=== PATIENT | male | born 1965 | race Caucasian/White ===

== ENCOUNTER 2017-11-11 21:32 | Observation (INO) | payer OTHER ==
[~2017-11-11] VITALS: Ht 185.4 cm; Wt 107.3 kg
--- NOTE | 2017-11-11 21:51 | ED CARDIAC/CP/PALPITATIONS ---
History of Present Illness General Chief Complaint: Chest Pain Stated Complaint: CHEST/NECK AND UPPER BODY PAIN, X 2 DAYS Source: patient Exam Limitations: no limitations Vital Signs & Intake/Output Vital Signs & Intake/Output Vital Signs Date Time Temp Pulse Resp B/P B/P Pulse O2 O2 Flow FiO2 Mean Ox Delivery Rate 11/11 2316 Room Air 11/11 2226 98.3 80 16 142/78 98 Room Air Room Air Triage Nurses Notes Reviewed? yes HPI: 52 yo gentleman h/o of hyperlipidemia presents with substernal chest pressure, fluctuating, that began yesterday at 3pm. He notes radiation to his left jaw, a mild headache. At it's worse, just prior to arrival, it was 7/10. Presently, his discomfort is 2/10. He describes the discomfort as a "pressure" that moves all over. He notes no syncopal symptoms, palpitations, dyspnea. He is otherwise well. Past History Travel History Traveled to [place] past 21 day No Medical History Any Pertinent Medical History? see below for history Cardiovascular: hyperlipidemia Surgical History Surgical History: none Family History Hx Contributory? No Review of Systems Review of Systems Constitutional: Reports: no symptoms. EENTM: Reports: no symptoms. Respiratory: Reports: no symptoms. Cardiovascular: Reports: no symptoms. GI: Reports: no symptoms. Genitourinary: Reports: no symptoms. Musculoskeletal: Reports: no symptoms. Skin: Reports: no symptoms. Neurological/Psychological: Reports: no symptoms. Hematologic/Endocrine: Reports: no symptoms. Immunologic/Allergic: Reports: no symptoms. All Other Systems: Reviewed and Negative Physical Exam Physical Exam General Appearance: well developed/nourished, no apparent distress, alert, comfortable Head: atraumatic, normal appearance Eyes: Bilateral: normal appearance. Ears, Nose, Throat: normal pharynx, normal ENT inspection Neck: normal inspection, supple, full range of motion Respiratory: normal breath sounds, chest non-tender, no respiratory distress, quiet respiration, lungs clear Cardiovascular: regular rate/rhythm Gastrointestinal: normal bowel sounds, soft, non-tender Back: normal inspection, normal range of motion Extremities: normal inspection, normal capillary refill, normal range of motion Neurologic/Psych: no motor/sensory deficits, awake, alert, oriented x 3 Skin: intact, normal color, warm/dry Core Measures ACS in differential dx? No CVA/TIA Diagnosis No Sepsis Present: No Sepsis Focused Exam Completed? No Progress Differential Diagnosis: AMI, unstable angina Plan of Care: Orders Procedure Date/time Status Nothing by Mouth 11/12 B Active Saline Lock 11/13 7 Active Misc Message 11/13 7 Active ED Holding Orders 11/13 7 Active Vital Signs 11/13 7 Active Code Status 11/[address] in observation 11/12 6 Active TROPONIN LEVEL 11/11 2144 Complete LIPASE 11/11 2144 Complete HEPATIC FUNCTION PANEL 11/11 2144 Complete D-DIMER 11/11 2144 Complete CBC WITHOUT DIFFERENTIAL 11/11 2144 Complete BASIC METABOLIC PANEL 11/11 2144 Complete AMYLASE 11/11 2144 Complete EKG 11/11 2133 Active Current Medications Sig/Flaquito Start time Last Medication Dose Stop Time Status Admin Ketorolac 30 MG ONCE ONE 11/11 2344 UNVr Tromethamine 11/11 2345 (Toradol) Laboratory Tests 11/11/172156: Anion Gap 8, Estimated GFR > 60, BUN/Creatinine Ratio 20.0, Glucose 174 H, Calcium 9.3, Total Bilirubin 0.7, Direct Bilirubin 0.2, AST 24, ALT 34, Alkaline Phosphatase 61, Troponin I < 0.01, Total Protein 6.5, Albumin 3.9, Amylase 75, Lipase 128, D-Dimer High Sensitivty < 200, CBC w Diff NO MAN DIFF REQ, RBC 4.57 L, MCV 88.2, MCH 30.0, MCHC 34.0, RDW 13.4, MPV 7.7, Gran % 74.8, Lymphocytes % 14.9 L, Monocytes % 6.3, Eosinophils % 3.7, Basophils % 0.3, Absolute Granulocytes 6.3, Absolute Lymphocytes 1.3, Absolute Monocytes 0.5, Absolute Eosinophils 0.3, Absolute Basophils 0 Diagnostic Imaging: Viewed by Me: Radiology Read. Discussed w/RAD: Radiology Read. CXR Impression: PATIENT: NANCY DESIR PRESENT AGE: 52 PATIENT ACCOUNT NO: [id number] : 65 LOCATION: [facility] ORDERING PHYSICIAN: Sandip Rodriguez MD SERVICE DATE: 11/11/17-2144 EXAM TYPE: RAD - XRY- PORTABLE CHEST XRAY EXAMINATION: XR PORTABLE CHEST CLINICAL INFORMATION: Chest pain COMPARISON: None TECHNIQUE: Portable frontal view of the chest was obtained. FINDINGS: Cardiac silhouette is normal in size. Lungs are adequately aerated. No lobar consolidation. No gross pleural effusion or pneumothorax. IMPRESSION: No acute cardiopulmonary pathology. DICTATED BY: Jamie Abarca MD DATE/TIME DICTATED:11/11/172301 CLIPMAN:NAYE DATE/TIME TRANSCRIBED:11/11/172301 CONFIDENTIAL, DO NOT COPY WITHOUT APPROPRIATE AUTHORIZATION. <Electronically signed in Other Vendor System> SIGNED BY: Jamie Abarca MD 11/11/172305 Initial ED EKG: low voltage III, F, left ant fasicular block, nsr. no acute changes Departure Departure Disposition: STILL A PATIENT Condition: Stable Clinical Impression Primary Impression: Chest pain Departure Forms: Customer Survey General Discharge Information Observation Note Spoke With: Kwabena Armendariz MD Patient In: Non-ED OBS Care Area Rationale for Observation: My rational for observation is as follows . pt with chest pain, non specific ekg, uncertain etiology.... merits serial trops /ekg/monitoring, cards to eval in AM. call placed to cardiology. Critical Care Note Critical Care Note Critical Care Time: non-applicable
[2017-11-11 22:09] LABS: ABSOLUTE BASOPHIL COUNT 0 /CUMM (0.0-0.2); ABSOLUTE EOSINOPHIL COUNT 0.3 /CUMM (0.0-0.7); ABSOLUTE GRANULOCYTE CT 6.3 /CUMM (1.4-6.5); ABSOLUTE LYMPH COUNT 1.3 /CUMM (1.2-3.4); ABSOLUTE MONOCYTE COUNT 0.5 /CUMM (0.10-0.60); BASOPHIL % 0.3 % (0.0-2.0); EOSINOPHIL % 3.7 % (0-5); GRANULOCYTE % 74.8 % (42.2-75.2); HEMATOCRIT 40.4 % (42-52); MEAN CORPUSCULAR VOLUME 88.2 FL (80.0-94.0); MEAN PLATELET VOLUME 7.7 FL (7.4-10.4); PLATELET COUNT 249 /CUMM (130-400); RBC DISTRIBUTION WIDTH 13.4 % (11.5-14.5); RED BLOOD CELL CT 4.57 /CUMM (4.70-6.10); WHITE BLOOD CELL COUNT 8.4 /CUMM (4.8-10.8)
--- NOTE | 2017-11-11 23:06 | RADIOLOGY REPORT ---
EXAMINATION: XR PORTABLE CHEST CLINICAL INFORMATION: Chest pain COMPARISON: None TECHNIQUE: Portable frontal view of the chest was obtained. FINDINGS: Cardiac silhouette is normal in size. Lungs are adequately aerated. No lobar consolidation. No gross pleural effusion or pneumothorax. IMPRESSION: No acute cardiopulmonary pathology.
--- NOTE | 2017-11-12 01:43 | History & Physical ---
Kevin STEEL,Jonna 11/12/17 0121: General Information and HPI MD Statement: I have seen and personally examined NANCY DESIR and documented this H&P. The patient is a 52 year old M who presented with a patient stated chief complaint of [chest pain]. Source of Information: patient Exam Limitations: no limitations History of Present Illness: Patient is a 52-year-old male presented with chief complaints of chest pain started since 3 PM yesterday. PMH-sarcoidosis last 15-year regularly following by Dr. Frantz Bob at [facility] , type 2 diabetes, history of sleep apnea not using CPAP following Dr. Trey Haskins. History of present illness-he is a known case of sarcoidosis and had multiple episodes of chest pain since last 15 years. he never took an opinion from any manager ecommerce. Yesterday at work around 3 PM he started having intermittent chest discomfort which is described as a lumps in the chest. He was having associated burping movements. Initially the chest pain was in the range of 4-5 and at the time of presentation initially it was between 2-7. He did try couple of tums without any benefit. He was worried that he may have some cardiac problem so that is why he was here for further evaluation and management. He is pretty active at the baseline, goes to the same around 4 times in a week, but have sitting job. He denies for using any [id number]-fvp-[id number] medication but sometimes uses ibuprofen as needed. He was evaluated by his primary care provider for sarcoidosis. He said that he did echo, stress test and Holter monitoring recently which showed only evidence of APCs and VPCs. He was recently diagnosed as having diabetes since last 2 years and was working on his diet. He lost from 218 LB to 235 albumin 1 year. But regained around 12 LBM last couple of weeks. He said that he was eating junky foods. His HbA1c before weight loss was 12 and with a diet decrease down to 7.3. Recently he has a lot of stress because he is undergoing divorce. He was also having history of chronic dry cough and recently which got worse. His primary care provider has been prescribed him rescue inhaler. 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 He is recently under a lot of stress due to the divorce. He has 3 children. Family history- Mother-history of breast cancer, hypertension, diabetes Father-history of diabetes, lymphoma, melanoma Allergies-penicillin causes rash Surgeries-tonsillitis Allergies/Medications Allergies: Coded Allergies: Penicillins (RASH 11/12/17) Uncoded Allergies: SEEDED FRUIT (HIVES 11/12/17) Past History Travel History Traveled to [place] past 21 day No Medical History Neurological: NONE EENT: NONE Cardiovascular: hyperlipidemia Respiratory: NONE Gastrointestinal: NONE Hepatic: NONE Renal: NONE Musculoskeletal: NONE Psychiatric: NONE Endocrine: NONE Blood Disorders: NONE Cancer(s): NONE ENROLLMENT NURSE/Reproductive: NONE Surgical History Surgical History: none Review of Systems Review of Systems Constitutional: Reports: no symptoms. Cardiovascular: Reports: chest pain. Exam & Diagnostic Data Last 24 Hrs of Vital Signs/I&O Vital Signs Date Time Temp Pulse Resp B/P B/P Pulse O2 O2 Flow FiO2 Mean Ox Delivery Rate 11/12 0117 55 20 111/56 99 Room Air 11/11 2316 Room Air 11/11 2226 98.3 80 16 142/78 98 Room Air Room Air Physical Exam General Appearance Alert, Oriented X3, Cooperative, No Acute Distress HEENT Atraumatic, PERRLA, EOMI Neck ? LYMPHADENOPATHY IN NECK Cardiovascular Normal S1, Normal S2 Lungs Clear to Auscultation, Normal Air Movement Abdomen Soft, No Tenderness Neurological Normal Speech, Strength at 5/5 X4 Ext, Normal Tone Extremities No Clubbing, No Cyanosis, No Edema Vascular Normal Pulses, Pulses Symmetrical Assessment/Plan Assessment: Patient is a 52-year-old male, morbidly obese presented with chief complaints of gradually progressive chest pain since yesterday 3 PM. Vital signs at the time of admission-temperature 98.3, pulse 80, respiratory 16, blood pressure 142/78, SPO2 98% on room air. Blood workup-hemoglobin 13.7, hematocrit 40.4, platelet count 249, serum sodium 136, potassium 3.5, chloride 100, carbon DEXA 27, anion gap 8, BUN 16, creatinine 0.8, GFR 60, glucose 174, calcium 9.3, total bilirubin 0.7, direct bilirubin 0.2, AST 24, ALT 34, alkaline phosphatase 61, troponin I less than 0.01, total protein 6.5, d-dimer less than 200 Chest x-ray-no any acute cardiopulmonary abnormality Problem list- Chest pain ruling out acute coronary syndrome; possibly secondary to the alcohol use and the stress or may be GERD Type 2 diabetes Sleep apnea not using CPAP Substance use disorder Assessment and plan- We will admit the patient to telemetry floor We will do serial troponins and EKGs 4am We will place a cardiology consult Follow echocardiogram Start on the capsule omeprazole 40 mg daily Tablet aspirin [address] of the chest/neck Fingerstick 3 times daily/at bedtime NovoLog according to the sliding scale Follow HbA1c, CRP, ESR We will consult the patient regarding sleep apnea and use of CPAP CODE STATUS-full code Diet-heart healthy diet DVT prophylaxis-ALP S/heparin As Ranked By This Provider Problem List: 1. Chest pain 2. Sarcoidosis Core Measures/Misc (11/03) Acute Coronary Syndrome ACS Diagnosis: No Congestive Heart Failure Congestive Heart Failure Diagnosis No Cerebrovascular Accident CVA/TIA Diagnosis: No VTE (View Protocol) VTE Risk Factors Age>40 No Mechanical VTE Prophylaxis d/t N/A MechProphylax Ordered No VTE Pharm Prophylaxis d/t NA PharmProphylax ordered Sepsis (View protocol) Sepsis Present: No If YES complete Sepsis Event Note If YES complete Sepsis Event Note Kwabena Armendariz MD 11/12/17 0410: Core Measures/Misc (11/03) Sepsis (View protocol) If YES complete Sepsis Event Note If YES complete Sepsis Event Note Attending MD Review Statement Attending Statement Attending MD Statement: examined this patient, discuss w/resident/PA/REEL OPERATOR, agreed w/resident/PA/REEL OPERATOR Attending Assessment/Plan: Patient is seen and examined independently by me. Care plan discussed with site medical director and/or resident. I agree with the physical exam findings and plan of care as outlined above with the following changes and additions. 52 yo M with history of sarcoidosis, DM, HLD, sleep apnea but not using CPAP, presents with chest pain. Patient has intermittent chest pressure since 3 pm on 11/10 with radiation to neck. It also has a "lumpy" character to the discomfort. It is associated with mild SOB and diaphoresis. He is dealing with divorce recently. On exam, heart: regular, S1S2. Lungs: clear bilaterally. In the ED, troponin <0.01. D-dimer <200. CXR shows no acute infiltrate or edema. CT neck shows no soft tissue mass. CT chest shows adenopathy c/w sarcoidosis. EKG shows NSR at 70 with inverted T in lead III only and no other significant ST -T changes. Patient is placed on observation to [facility] for chest pain. Cardiac monitoring. Check serial troponin and EKG. Start ASA and omeprazole. Cardiology consult. Signed: Kwabena Armendariz MD FACP
--- NOTE | 2017-11-12 03:09 | CT SCAN REPORT ---
EXAMINATION: CT NECK WITHOUT CONTRAST CLINICAL INFORMATION: History of sarcoidosis. Feeling of lump in neck. COMPARISON: None TECHNIQUE: Multidetector CT imaging of the soft tissue neck and chest was performed without the use of intravenous contrast. DLP: 508 mGy-cm FINDINGS: CT neck: Overall evaluation is made limited given the lack of intravenous contrast. The aerodigestive tract is patent. No evidence of drainable fluid collection or pathologic adenopathy. Multiple mildly prominent bilateral cervical and periparotid lymph nodes are seen, though likely reactive in etiology. The bilateral parotid and submandibular glands are within normal limits for size. There is a heterogeneously enlarged thyroid gland with dystrophic calcification on the right. The visualized intracranial compartment is unremarkable. There complete opacification of the left ethmoid sinus with aerosolized secretions and mucosal thickening in the left maxillary sinus. Opacification of scattered right ethmoid air cells. Left maxillary mucosal retention cyst noted. No suspicious lytic or blastic osseous lesions. CT chest: The heart is within normal limits for size. No significant pericardial effusion is identified. Multiple bulky mediastinal and hilar lymph nodes are seen, several which are calcified, in keeping with the history of sarcoidosis. An index subcarinal node measures up to 2.7 cm in short axis while a conglomerate right paratracheal node measures 2.8 cm in short axis. Evaluation of the lungs demonstrates minimal bibasilar atelectatic changes. Superimposed subpleural nodule is seen in the lateral aspect of the right lower lobe measuring 4 mm (series 5, image 310). A few perifissural nodules are seen along the right major fissure the largest measuring 6 mm (series 5, image 270) and the other more inferiorly measuring up to 4 mm (series 5, image 340). Given their location, these nodules are favored to reflect intrapulmonary lymph nodes. Also noted is a 4 mm bronchovascular nodule in the right lower lobe (series 5, image 270). No evidence of pneumothorax or pleural effusion. No evidence of axillary adenopathy. No suspicious lytic or blastic osseous lesions identified. IMPRESSION: CT neck: No evidence of soft tissue mass, fluid collection, or pathologic adenopathy in the neck allowing for noncontrast technique. Aerosolized secretions in the left frontal sinus with near complete opacification of the left ethmoid sinus, which may reflect acute sinusitis in the appropriate clinical setting. CT CHEST: Bulky, partially calcified mediastinal and hilar adenopathy, in keeping with history of sarcoidosis. Four subcentimeter pulmonary nodules particularly along the right lower lobe, three of which are subpleural or perifissural in location, therefore favored to be benign in etiology. An addition 4 mm bronchovascular nodule in the right lower lobe is nonspecific. If the patient is considered to be high risk for lung malignancy, consider follow-up with repeat CT in 12 months to ensure stability and/or resolution. I personally reviewed the images and, if necessary, I edited the report. I agree with the report as now presented.
[2017-11-12 06:30] VITALS: BP 120/66
--- NOTE | 2017-11-12 10:51 | PN- Housestaff ---
Subjective Follow-up For: atypical chest pain observation status Complaints: 'sensation of lump in throat' Tele-Events Since Last Visit: sinus rhythm rate 84-92 Subjective: Patient reports continued sensation 'something in my throat'. He states his chest pain has resolved. No other complaints or events overnight. Review of Systems Constitutional: Reports: no symptoms. EENTM: Reports: throat pain. Cardiovascular: Reports: no symptoms. Respiratory: Reports: no symptoms. Gastrointestinal: Reports: no symptoms. Genitourinary: Reports: no symptoms. Musculoskeletal: Reports: no symptoms. Skin: Reports: no symptoms. Objective Last 24 Hrs of Vital Signs/I&O Vital Signs Date Time Temp Pulse Resp B/P B/P Pulse O2 O2 Flow FiO2 Mean Ox Delivery Rate 11/12 1004 Room Air Room Air 11/12 0630 97.7 56 18 120/66 94 Room Air 11/12 0117 55 20 111/56 99 Room Air 11/11 2316 Room Air 11/11 2226 98.3 80 16 142/78 98 Room Air Room Air Intake & Output 11/12 1600 11/12 0800 11/12 0000 Intake Total 100 Output Total Balance 100 Intake, IV 100 Patient 237 lb Weight Physical Exam General Appearance: Alert, Oriented X3, Cooperative, No Acute Distress Skin: No Rashes Skin Temp/Moisture Exam: Warm/Dry HEENT: Atraumatic, PERRLA Neck: Supple, No JVD Cardiovascular: Regular Rate, Normal S1, Normal S2, No Murmurs Lungs: Clear to Auscultation, Normal Air Movement Abdomen: Normal Bowel Sounds, Soft, No Tenderness Extremities: No Cyanosis, No Edema Assessment/Plan Assessment: 52 year old male with PMH sarcoidosis (close monitoring by Tanker Truck Driver Dr. Bob), DM2, sleep apnea (not on CPAP) presented with two day history of chest pain and sensation of lump in his throat. He states he had these sx off and on for 15 years, but never lasting longer than 4 hours. He was brought into hospital for observation and cardiology consult inpatient. Problem List: 1. Chest pain 2. H/O sarcoidosis 3. H/O DM2 #chest pain -negative work up for ACS including trop, ekg, cxr, ct chest, ct neck -Cardiology consult: Dr. Muro saw and states patient can be discharge with outpatient referral for stress test. #chronic medical problems -medications continued DVT prophylaxis: lovenox/ambulation Code status: full code Discharge: today Problem List: 1. Chest pain 2. Sarcoidosis Pain Ratin Pain Location: none Pain Goal: Remain pain free Pain Plan: n/a Tomorrow's Labs & Rationales: no
--- NOTE | 2017-11-12 10:52 | PN- Att Addend ---
Attending Addendum Attending Brief Note Patient seen and examined. This is a 52-year-old male with a past medical history of sarcoidosis who follows with the PCP and a public relations account supervisor with the primary group. He came in with atypical chest pain and overnight his ruled out with enzymes. No EKG changes, stayed normotensive, chest pain-free and imaging CT neck and CT chest negative. I discussed with the extra gang supervisor Emerson Robertson MD. He does not need an inpatient echo and does not need to leave on baby aspirin. He is stable to leave and he will follow-up with Dr. Robertson's office within the week to schedule an outpatient stress test.
--- NOTE | 2017-11-12 11:03 | Patient Discharge Instructions ---
Discharge Instructions General Discharge Information You were seen/treated for: chest pain Watch for these problems: return of chest pain, shortness of breath, fevers Special Instructions: Please let your [facility]n Integrated know your were seen in the ED. Please follow up with Dr. Robertson (Margarine Maker) as an outpatient within one week for stress test. Please contact him this week. You may contact medical records at [phone] for copies of your work up while in the hospital. Please return immediately if symptoms return or you experience shortness of breath, chest pain. Diet Continue normal diet: No Recommended Diet: Diabetic Acute Coronary Syndrome Inclusion Criteria At DC or during hospital stay patient has or had the following: ACS DIAGNOSIS No Discharge Core Measures Meds if any: Prescribed or Continued at Discharge Meds if any: NOT Prescribed or Continued at Discharge Congestive Heart Failure Inclusion Criteria At DC or during hospital stay patient has or had the following: CHF DIAGNOSIS No Discharge Core Measures Meds if any: Prescribed or Continued at Discharge Meds if any: NOT Prescribed or Continued at Discharge Cerebrovascular accident Inclusion Criteria At DC or during hospital stay patient has or had the following: CVA/TIA Diagnosis No Discharge Core Measures Meds if any: Prescribed or Continued at Discharge Meds if any: NOT Prescribed or Continued at Discharge Venous thromboembolism Inclusion Criteria VTE Diagnosis No VTE Type NONE VTE Confirmed by (Test) NONE Discharge Core Measures - Per Current guidelines, there needs to be overlap - treatment for the first 5 days of Warfarin therapy. - If discharged on Warfarin prior to 5 days of - overlap therapy, the patient will need to be - assessed for post discharge needs including - *Post discharge parental anticoagulation - *Warfarin and/or parental anticoagulation education - *Follow up date to check INR post discharge At least 5 days overlap therapy as Inpatient No Meds if any: Prescribed or Continued at Discharge Note: Overlap Therapy is Warfarin and Anticoagulant Meds if any: NOT Prescribed or Continued at Discharge
--- NOTE | 2017-11-12 12:18 | Cons- Cardiology ---
General Information and HPI Consulting Request Date of Consult: 11/12/17 Requested By: Jessie Tamayo MD Reason for Consult: Chest pain Source of Information: patient, old records History of Present Illness: This is a pleasant 52-year-old male with a past medical history of sarcoidosis, sleep apnea, and diabetes who presents to [facility] with a chief complaint of nonexertional chest discomfort without any obvious exacerbating or alleviating factors; he reports he has had intermittent episodes for many years which are not increasing in intensity or frequency; he had a noninvasive cardiac workup in 2017 that showed no significant pathology (echocardiogram, Holter monitor, and exercise stress test); he denies diaphoresis or worsening shortness of breath. Denies orthopnea or paroxysmal nocturnal dyspnea. Denies syncope, headache, slurring of speech, or focal weakness. He has good exertional tolerance with no exertional symptoms. He does report recent emotional stress. Allergies/Medications Allergies: Coded Allergies: Penicillins (RASH 11/12/17) Uncoded Allergies: SEEDED FRUIT (HIVES 11/12/17) Home Med List: No Known Home Medications Current Medications: Current Medications Sig/Flaquito Start time Last Medication Dose Route Stop Time Status Admin Acetaminophen 500 MG Q6P PRN 11/12 0145 AC PO Acetaminophen 0 .STK-MED ONE 11/117 DC PO Acetaminophen 650 MG ONCE ONE 11/11 2214 DC 11/11 PO 11/11 Albuterol Sulfate 2 PUF Q4P PRN 11/12 1015 AC INH Aspirin 81 MG DAILY 11/12 899 AC PO Aspirin 0 .STK-MED ONE 11/118 DC PO Aspirin 325 MG ONCE ONE 11/11 2214 DC 11/11 PO 11/12 2215 231 Enoxaparin Sodium 40 MG DAILY 11/12 09 AC SC Insulin Aspart 0 TIDAC 11/12 0800 AC SC Ketorolac 0 .STK-MED ONE 11/12 0143 DC Tromethamine .ROUTE Ketorolac 30 MG ONCE ONE 11/11 234 DC 11/12 Tromethamine IV 11/11 2345 014 Nitroglycerin 0 .STK-MED ONE 11/11 2308 DC SL Nitroglycerin 0.4 MG ONCE ONE 11/11 2214 DC 11/11 SL 11/12 2215 231 Omeprazole 40 MG DAILY AC 11/12 0700 AC 11/12 PO 0631 Review of Systems Review of Systems: Review of systems as per HPI. The remainder of a 10 point review of systems was reviewed and was otherwise negative. Past History Travel History Traveled to [place] past 21 day No Medical History Blood Transfusion Hx: No Neurological: NONE EENT: NONE Cardiovascular: hyperlipidemia Respiratory: NONE Gastrointestinal: NONE Hepatic: NONE Renal: NONE Musculoskeletal: NONE Psychiatric: NONE Endocrine: NONE Blood Disorders: NONE Cancer(s): NONE WOOD ROOM HAND/Reproductive: NONE Surgical History Surgical History: 1 Psychosocial History Smoking Status: Never Smoked Exam & Diagnostic Data Vital Signs and I&O Vital Signs Date Time Temp Pulse Resp B/P B/P Pulse O2 O2 Flow FiO2 Mean Ox Delivery Rate 11/12 1004 Room Air Room Air 11/12 0630 97.7 56 18 120/66 94 Room Air 11/12 0117 55 20 111/56 99 Room Air 11/11 2316 Room Air 11/11 2226 98.3 80 16 142/78 98 Room Air Room Air Intake & Output 11/12 1600 11/12 0800 11/12 0000 11/11 1600 11/11 0800 11/11 0000 Intake Total 100 Output Total Balance 100 Intake, IV 100 Patient 237 lb Weight Physical Exam: General: no apparent distress. Alert. Eyes: No obvious scleral icterus. HEENT: No jugular venous distention or abnormal jugular venous pulsations. Cardiovascular: Normal intensity S1/S2. PMI not grossly displaced. Respiratory: Lungs clear to auscultation bilaterally. Abdomen: Soft, nontender with no guarding or rebound tenderness. Musculoskeletal: No clubbing or cyanosis noted Skin: warm Neurologic: No gross focal deficits noted. Labs/Agustín Results: Laboratory Tests 11/12 11/12 11/11 0450 0450 2157 Chemistry Sodium (137 - 145 mmol/L) 136 L Potassium (3.5 - 5.1 mmol/L) 3.5 Chloride (98 - 107 mmol/L) 100 Carbon Dioxide (22 - 30 mmol/L) 27 Anion Gap (5 - 16) 8 BUN (9 - 20 mg/dL) 16 Creatinine (0.7 - 1.2 mg/dL) 0.8 Estimated GFR (>60 ml/min) > 60 BUN/Creatinine Ratio (7 - 25 %) 20.0 Glucose (65 - 99 mg/dL) 174 H Hemoglobin A1c (4.2 - 5.8 %) 7.5 H Calcium (8.4 - 10.2 mg/dL) 9.3 Total Bilirubin (0.2 - 1.3 mg/dL) 0.7 Direct Bilirubin (< 0.4 mg/dL) 0.2 AST (17 - 59 U/L) 24 ALT (21 - 72 U/L) 34 Alkaline Phosphatase (< 127 U/L) 61 Troponin I (<0.11 ng/ml) < 0.01 < 0.01 C-React Prot High Sens (1.0 - 3.0 mg/L) 5.3 H Total Protein (6.3 - 8.2 g/dL) 6.5 Albumin (3.5 - 5.0 g/dL) 3.9 Amylase (30 - 110 U/L) 75 Lipase (23 - 300 U/L) 128 Coagulation D-Dimer High Sensitivty (0 - 243 ng/ml) < 200 Hematology CBC w Diff NO MAN DIFF REQ WBC (4.8 - 10.8 /CUMM) 8.4 RBC (4.70 - 6.10 /CUMM) 4.57 L Hgb (14.0 - 18.0 G/DL) 13.7 L Hct (42 - 52 %) 40.4 L MCV (80.0 - 94.0 FL) 88.2 MCH (27.0 - 31.0 PG) 30.0 MCHC (33.0 - 37.0 G/DL) 34.0 RDW (11.5 - 14.5 %) 13.4 Plt Count (130 - 400 /CUMM) 249 MPV (7.4 - 10.4 FL) 7.7 Gran % (42.2 - 75.2 %) 74.8 Lymphocytes % (20.5 - 51.1 %) 14.9 L Monocytes % (1.7 - 9.3 %) 6.3 Eosinophils % (0 - 5 %) 3.7 Basophils % (0.0 - 2.0 %) 0.3 Absolute Granulocytes (1.4 - 6.5 /CUMM) 6.3 Absolute Lymphocytes (1.2 - 3.4 /CUMM) 1.3 Absolute Monocytes (0.10 - 0.60 /CUMM) 0.5 Absolute Eosinophils (0.0 - 0.7 /CUMM) 0.3 Absolute Basophils (0.0 - 0.2 /CUMM) 0 ESR Westergren (0 - 10 MM) 16 H Diagnostic Data EKG Results Tracing was personally reviewed and shows sinus rhythm at 56 bpm CXR Results No acute cardiopulmonary pathology. Other Results Telemetry tracings were personally reviewed and shows sinus rhythm chest CT Bulky, partially calcified mediastinal and hilar adenopathy, in keeping with history of sarcoidosis. Assessment/Plan Assessment/Plan 1. Atypical chest discomfort with normal serial troponins and no ischemic changes on ECG 2. History of sarcoidosis 3. History of sleep apnea 4. History of diabetes mellitus The patient's symptoms are atypical for cardiac etiology; he is hemodynamically stable with normal serial troponins and no ischemic EKG changes. Telemetry reveals no sustained arrhythmias. He did have a noninvasive workup in 2017 which included echocardiogram, Holter, and exercise stress test with no obvious cardiac pathology. No additional inpatient cardiac testing is currently required. He can follow-up in my office after discharge for continued evaluation. Advised to return to the hospital via 911 if any new or recurring symptoms. Dav Robertson MD [facility] Consult Acknowledgment - Thank you for your consult request.
--- NOTE | 2017-11-12 13:20 | Discharge Summary ---
Visit Information Visit Dates Admission Date: 11/12/17 Discharge Date: 11/12/17 Hospital Course Course Attending Physician: Roni STEEL,Jessie Anguiano Primary Care Physician: Su STEEL,[place] [facility] Course: Mr Bunch is a 52 year old male with PMH sarcoidosis (close monitoring by [employer] [facility] Dr. Bob), DM2, sleep apnea (not on CPAP) presented with two day history of chest pain and sensation of lump in his throat. He states he had these sx off and on for 15 years, but never lasting longer than 4 hours. He was brought into the hospital for observation and cardiology consult inpatient. Vital signs at the time of admission- temperature 98.3, pulse 80, respiratory 16, blood pressure 142/78, SPO2 98% on room air. Blood workup-hemoglobin 13.7, hematocrit 40.4, platelet count 249, serum sodium 136, potassium 3.5, chloride 100, carbon DEXA 27, anion gap 8, BUN 16, creatinine 0.8, GFR 60, glucose 174, calcium 9.3, total bilirubin 0.7, direct bilirubin 0.2, AST 24, ALT 34, alkaline phosphatase 61, troponin I less than 0.01, total protein 6.5, d-dimer less than 200 EKG: Normal sinus rhythm CXR-no acute cardiopulmonary abnormality Problem list: 1. Chest pain ruling out acute coronary syndrome; possibly secondary to the alcohol use and the stress or may be GERD 2. Type 2 diabetes 3. Sleep apnea not using CPAP 4. History of sarcoidosis Patient was monitored overnight on telemetry and seen by Dr. Muro ( Cardiology) in AM. Patient remained stable overnight and symptoms of chest pain had resolved. He was cleared by Dr. Muro for discharge home with outpatient follow up for stress test. No changes were made to his home medications. Patient was discharged home in stable condition with close follow up with outpatient cardiology for further diagnostics. Allergies: Coded Allergies: Penicillins (RASH 11/12/17) Uncoded Allergies: SEEDED FRUIT (HIVES 11/12/17) Disposition Summary Disposition Principal Diagnosis: chest pain Additional Diagnosis: history of sarcoidosis Discharge Disposition: home or self care Discharge Instructions General Discharge Information Code Status: Full Code Patient's Diet: diabetic Patient's Activity: as tolerated Follow-Up Instructions/Appts: Follow up with Dr. Muro Cardiology for outpatient stress test. Follow up with your [employer] [facility] and Primary Care Physician Resume all home medications as prescribed. Copies To: Ailyn STEEL,Charles Blue MD,Frantz
== END 2017-11-12 14:30 ==
LOC: ERH 21:32 → ERHI 11-12 00:07 → ENRESERV 11-12 01:37 → 1NO 11-12 03:18 → ENPENDDIS 11-12 10:52 → 1NO 11-12 14:30
PROVIDERS: Pediatrics
DX: R07.89 Other chest pain (principal); D86.9 Sarcoidosis, unspecified; E11.9 Type 2 diabetes mellitus without complications; E78.5 Hyperlipidemia, unspecified; G47.33 Obstructive sleep apnea (adult) (pediatric); E66.01 Morbid (severe) obesity due to excess calories; Z79.4 Long term (current) use of insulin
CPT/HCPCS: 6020; 36592; 71045; 93005; 93010; 96374; G0378; J1650; J1885; J3490